=== PATIENT | female | born 1960 | race Caucasian/White ===

== ENCOUNTER 2017-01-03 07:25 | Day surgery (SDC) | payer OTHER ==
[2017-01-01 12:41] LABS: Basophils % (Auto) 0.3 % (0.0-1.8); Eosinophils % (Auto) 1.9 % (0.0-4.3); Hematocrit 38.7 % (30.3-42.9); Hemoglobin 12.6 gm/dl (10.1-14.3); Mean Corpuscular HGB Conc 33 % (30-34); Mean Corpuscular Hemoglobin 26 pg (28-32); Mean Corpuscular Volume 81 fl (79-97); Platelet Count 270 K/mm3 (140-440); Red Blood Count 4.79 M/mm3 (3.65-5.03); Red Cell Distribution Width 14.7 % (13.2-15.2); White Blood Count 7.9 K/mm3 (4.5-11.0)
[2017-01-01 13:11] LABS: Anion Gap 18 mmol/L; Blood Urea Nitrogen 13 mg/dL (7-17); Calcium 9.5 mg/dL (8.4-10.2); Carbon Dioxide 30 mmol/L (22-30); Chloride 95.6 mmol/L (98-107); Glucose 261 mg/dL (65-100); Potassium 4.2 mmol/L (3.6-5.0); Sodium 139 mmol/L (137-145)
--- NOTE | 2017-01-03 08:33 | Short Stay Summary ---
Short Stay Documentation Date of service: 01/03/17 Narrative H&P: 56-year-old 014 with a history of a thickened endometrium on ultrasound. The patient had ultrasound performed that demonstrated evidence of 1.8 cm mass in the myometrium and endometrial thickness of 25 mm. The patient reports being amenorrheic for a year. She complains of having a bulge in her pelvis consistent with findings of a cystocele. An endometrial biopsy was attempted in the office however was unsuccessful secondary to findings of a stenotic cervical os. - History Principal diagnosis: endometrial hyperplasia; cervical stenosis Past Medical History: diabetes, hypertension Past Surgical History: No surgical history Social history: - Allergies and Medications Current Medications: Allergies latex Allergy (Verified 12/28/16 14:50) itches, rash peanut Allergy (Verified 12/28/16 14:50) Anaphylaxis baby carrots Allergy (Uncoded 12/28/16 14:50) itchy throat, SOB green sweet pepper Allergy (Uncoded 12/28/16 14:50) itchy throat, SOB jalopeno Allergy (Uncoded 12/28/16 14:50) itchy throat, SOB Home Medications Medication Instructions Recorded Confirmed Last Taken Type Aspirin [Adult Low Dose Aspirin EC] 81 mg PO DAILY 12/28/16 12/28/16 12/21/16 History Ibuprofen [Motrin] 200 mg PO Q6H PRN 12/28/16 12/28/16 Unknown History Lisinopril/Hydrochlorothiazide 1 tab PO QDAY 12/28/16 12/28/16 Unknown History [Zestoretic 20-25 mg] Vitamin B Complex [Natural B-100] 1 each PO DAILY 12/28/16 12/28/16 Unknown History glipiZIDE [Glucotrol] 10 mg PO BID 12/28/16 12/28/16 Unknown History metFORMIN [Glucophage] 1,000 mg PO BID 12/28/16 12/28/16 Unknown History - Physical exam General appearance: no acute distress Integumentary: no rash HEENT: Atraumatic Lungs: Clear to auscultation Breasts: deferred Heart: Regular rate Gastrointestinal: normal Female Genitourinary: deferred Rectal Exam: deferred - Brief post op/procedure progress note Date of procedure: 01/03/17 Pre-op diagnosis: thickened endometrium Post-op diagnosis: same Procedure: Hysteroscopy; dilatation and curettage Anesthesia: GETA Surgeon: DALY CALDERON Estimated blood loss: minimal Pathology: list (endometrial curettings) Specimen disposition: to lab Condition: stable - Hospital course Hospital course: The patient was admitted the day of surgery and underwent a hysteroscopy dilatation and curettage. Please see operative note for details of surgery. Her postoperative course was uneventful. - Disposition Condition at discharge: Good Disposition: DISCHARGED TO HOME OR SELFCARE Short Stay Discharge Plan Activity: other (pelvic rest for 1 week) Diet: regular Additional Instructions: Patient should follow up with Dr. Calderon in 2 weeks Prescriptions: Ibuprofen [Motrin] 800 mg PO Q8HR PRN #60 tablet PRN Reason: Pain oxyCODONE /ACETAMINOPHEN [Percocet 5/325] 1 tab PO Q6HR PRN #30 tablet PRN Reason: Pain
[2017-01-03] MEDS ORDERED: NACL 0.9% 1000 ML 1,000 ML ONE (09:16)
--- NOTE | 2017-01-03 09:26 | Anesthesia Day of Surgery ---
Anesthesia Day of Surgery - Day of Surgery Patient Examined: Yes Patient H&P Reviewed: Yes Patient is NPO: Yes
--- NOTE | 2017-01-03 09:26 | Anesthesia Consultation ---
Anesthesia Consult and Med Hx Date of service: 01/03/17 - Airway Anesthetic Teeth Evaluation: Good ROM Head & Neck: Adequate Mental/Hyoid Distance: Adequate Mallampati Class: Class II Intubation Access Assessment: Probably Good - Pulmonary Exam CTA: Yes - Cardiac Exam Cardiac Exam: RRR - Pre-Operative Health Status ASA Pre-Surgery Classification: ASA3 Proposed Anesthetic Plan: General - Pulmonary Hx Smoking: No - Cardiovascular System Hx Hypertension: Yes (since 2003) - Central Nervous System Hx Psychiatric Problems: No - Gastrointestinal Hx Gastroesophageal Reflux Disease: No - Endocrine Hx Non-Insulin Dependent Diabetes: No Hx Hypothyroidism: No Hx Hyperthyroidism: No - Hematic Hx Anemia: No Hx Sickle Cell Disease: No - Other Systems Hx Alcohol Use: Yes (occas) Hx Substance Use: No Hx Cancer: No Hx Obesity: Yes
[2017-01-03] MEDS ORDERED: VERSED ONE (09:30)
[2017-01-03] MEDS ORDERED: PEPCID ONE (09:30)
[2017-01-03] MEDS ORDERED: PEPCID PO NR (10:00)
[2017-01-03] MEDS ORDERED: ZOFRAN IV PRN (10:00)
[2017-01-03] MEDS ORDERED: VERSED IV NR (10:00)
[2017-01-03] MEDS ORDERED: NACL 0.9% 1000 ML 1,000 ML IV SCH (10:00)
[2017-01-03] MEDS ORDERED: DIPRIVAN 10 MG/ML IV ONE (10:14)
[2017-01-03] MEDS ORDERED: XYLOCAINE MPF 2% ONE (10:15)
[2017-01-03] MEDS ORDERED: DILAUDID ONE (10:15)
[2017-01-03] MEDS ORDERED: NACL 0.9% IR ONE (10:45)
[2017-01-03] MEDS: DILAUDID IV PRN ×2 (11:25→11:35)
--- NOTE | 2017-01-03 11:32 | Operative Report ---
Operative Report Operative Report: Date of procedure: 01/03/2017 Pre-operative diagnosis: Thickened endometrium; stenotic cervical os Post-operative diagnosis: Same as above Procedure name(s): Hysteroscopy; dilatation and curettage Surgeon: Martha Mace M.D. Straight Cutter: None Anesthesia: LMA Pathology: Endometrial curettings Findings normal post menopausal endometrium; ostia identified bilaterally Indication: 56-year-old 014 with a history of a thickened endometrium found on pelvic ultrasound. The patient has been postmenopausal for 1 year and is amenorrheic. Secondary to her systolic cervical os and endometrial biopsy could not be performed in the office. Procedure The patient was taken to the operating room and given general tracheal anesthesia without complication. The patient was prepped and draped in a normal sterile fashion. A bivalve speculum was placed in the patient's vagina single-tooth tenaculums placed on the anterior lip of the cervix. The cervical os was significantly strictured. The cervical os was dilated with graduated dilators. A uterine sound was inserted. The hysteroscope was then placed. Insufflation of the uterine cavity was performed with normal saline. Gen. survey of the uterine cavity revealed normal postmenopausal endometrium, no intracavitary lesions were identified. The hysteroscope was then removed. A sharp curettage of the endometrial surface was performed. The tissue was sent to pathology. The remainder of the vaginal instruments were then removed atraumatically. The patient was then successfully extubated taken to the recovery room. All sponge laps and needle counts were correct 2.
[2017-01-03] MEDS ORDERED: PERCOCET 5/325 PO PRN (12:00)
--- NOTE | 2017-01-03 16:07 | Post Anesthesia Evaluation ---
- Post Anesthesia Evaluation Patient Participated: Yes Airway Patent: Yes Stable Respiratory Function: Yes Nausea/Vomiting: No Temp > 96.8F: Yes Pain Manageable: Yes Adequeate Hydration: Yes Anesthesia Complications: No Block Receding Appropriately: Not Applicable Patient on Ventilator: No
[2017-01-03 18:22] VITALS: BP 134/78
== END 2017-01-03 13:40 | disposition home or self-care (01) ==
LOC: OR 07:25
PROVIDERS: ATTEND Obstetrics & Gynecology
DX: N88.2 Stricture and stenosis of cervix uteri (principal); I10 Essential (primary) hypertension; E11.9 Type 2 diabetes mellitus without complications; E66.9 Obesity, unspecified; Z68.34 Body mass index [BMI] 34.0-34.9, adult; Z79.899 Other long term (current) drug therapy
CPT/HCPCS: 36415; 58558; 80048; 81025; 82962; 84703; 85025; 86850; 86900; 86901; 88305; A4217; J1170; J2250; J2704; J7030

== ENCOUNTER 2017-12-18 19:27 | Emergency (ER) | payer OTHER ==
[2017-12-18 20:39] VITALS: BP 143/78
--- NOTE | 2017-12-18 22:47 | Emergency Department Report ---
HPI - General Chief Complaint: Allergic Reaction Time Seen by Provider: 12/18/17 22:42 - HPI HPI: Patient is a 57-year-old female who presents ED complaining of allergic reaction to some carrots. Patient states that she ate some carrot 6:30 PM today. Patient states she normally has allergies to carrots. Patient states shortly after eating carrots she had some throat itching. Patient states symptoms therapy resolve when the she is still having some slightest throat itching so she wanted to be evaluated. She denies fever/chills/rash/nausea vomiting or abdominal pain, Swelling or shortness of breath ED Past Medical Hx - Past Medical History Hx Hypertension: Yes (since 2003) Hx Diabetes: Yes (since 2001) Hx Sickle Cell Disease: No Hx HIV: No - Surgical History Past Surgical History?: No - Social History Smoking Status: Never Smoker Substance Use Type: Alcohol - Medications Home Medications: Home Medications Medication Instructions Recorded Confirmed Last Taken Type Aspirin [Adult Low Dose Aspirin EC] 81 mg PO DAILY 12/28/16 12/28/16 12/21/16 History Ibuprofen [Motrin] 200 mg PO Q6H PRN 12/28/16 12/28/16 Unknown History Lisinopril/Hydrochlorothiazide 1 tab PO QDAY 12/28/16 01/03/17 01/03/17 History [Zestoretic 20-25 mg] Vitamin B Complex [Natural B-100] 1 each PO DAILY 12/28/16 01/03/17 01/02/17 History glipiZIDE [Glucotrol] 10 mg PO BID 12/28/16 01/03/17 01/02/17 History metFORMIN [Glucophage] 1,000 mg PO BID 12/28/16 01/03/17 01/02/17 History Ibuprofen [Motrin] 800 mg PO Q8HR PRN #60 tablet 01/03/17 Unknown Rx oxyCODONE /ACETAMINOPHEN [Percocet 1 tab PO Q6HR PRN #30 tablet 01/03/17 Unknown Rx 5/325] diphenhydrAMINE [Benadryl CAP] 25 mg PO QHS PRN #20 capsule 12/18/17 Unknown Rx ED Review of Systems ROS: Stated complaint: MAXIMINO Other details as noted in HPI Constitutional: denies: chills, fever Eyes: denies: eye pain, eye discharge, vision change ENT: denies: ear pain, throat pain Respiratory: denies: cough, shortness of breath, wheezing Cardiovascular: denies: chest pain, palpitations Endocrine: no symptoms reported Gastrointestinal: denies: abdominal pain, nausea, vomiting, diarrhea, constipation Genitourinary: denies: urgency, dysuria, discharge Musculoskeletal: denies: back pain, joint swelling, arthralgia, myalgia Skin: denies: rash, lesions, pruritus Neurological: denies: headache, weakness, paresthesias Psychiatric: denies: anxiety, depression Hematological/Lymphatic: denies: easy bleeding, easy bruising Physical Exam - Physical Exam Vital Signs: Vital Signs 12/18/17 12/18/17 20:30 20:39 Temperature 98.2 F 98.2 F Pulse Rate 89 88 Respiratory 18 18 Rate Blood Pressure 143/78 143/78 O2 Sat by Pulse 100 100 Oximetry Physical Exam: GENERAL: Alert and oriented x3, no apparent distress, Normal Gait, atraumatic. HEAD: Head is normocephalic and a-traumatic. EYES: Extra ocular muscles are intact. Pupils are equal, round, and reactive to light and accommodation. NOSE: Nose symetrical, Nontender,Nares appeared normal. MOUTH:Mouth is well hydrated and without lesions. Tonsils nonerythematous or swollen, Uvula midline, Tongue not elevated. Mucous membranes are moist. Posterior pharynx clear, no exudate or lesions. Patent airways. NECK: Supple. Non edematous, No lymphadenopathy or thyromegaly. No C-spine tenderness LUNGS: Symetrical with respiration, No wheezing, no rales or crackles, CTAB. HEART: S1, S2 present, regular rate and rhythm without murmur, no rubs, no gallops. Non tender to palpation ABDOMEN: No organomegaly was noted,Positive bowel sounds, soft, and non- distended. . Nontender to palpation on all Quadrants, NO CVA tenderness. SKIN: Warm and dry, No lesions, No ulceration or induration present. ED Course Vital Signs 12/18/17 12/18/17 20:30 20:39 Temperature 98.2 F 98.2 F Pulse Rate 89 88 Respiratory 18 18 Rate Blood Pressure 143/78 143/78 O2 Sat by Pulse 100 100 Oximetry ED Medical Decision Making - Medical Decision Making This is a 57-year-old female presents with allergic reaction ED course: Patient received dexamethasone and Pepcid in the ED She states she took some Claritin. Discussed with patient to follow up with primary care physician. Discussed the patient to return to ED if any worsening symptoms Vital signs are normal patient is in no acute or respiratory distress She is speaking in normal full sentences Critical care attestation.: If time is entered above; I have spent that time in minutes in the direct care of this critically ill patient, excluding procedure time. ED Disposition Clinical Impression: Allergic reaction to food Qualifiers: Encounter type: initial encounter Qualified Code(s): T78.1XXA - Other adverse food reactions, not elsewhere classified, initial encounter Disposition: - TO HOME OR SELFCARE Is pt being admited?: No Does the pt Need Aspirin: No Condition: Stable Instructions: Food Allergy (ED), Anaphylaxis (ED) Additional Instructions: Make sure to follow up with the primary care physician as discussed. Take all your medications as you've been prescribed. If you have any worsening symptoms or develop new symptoms please return to ED immediately. Prescriptions: diphenhydrAMINE [Benadryl CAP] 25 mg PO QHS PRN #20 capsule PRN Reason: Allergic Reaction Referrals: PRIMARY CARE, [Primary Care Provider] - 3-5 Days [facility] [Outside] - 3-5 Days [facility] [Outside] - 3-5 Days Forms: Work/School Release Form(ED) Time of Disposition: 23:40
[2017-12-18] MEDS ORDERED: DECADRON IM ONE (23:13)
[2017-12-18] MEDS ORDERED: PEPCID PO ONE (23:13)
== END 2017-12-19 00:15 | disposition home or self-care (01) ==
LOC: ED 19:27
DX: T78.1XXA Other adverse food reactions, not elsewhere classified, initial encounter (principal); I10 Essential (primary) hypertension; E11.9 Type 2 diabetes mellitus without complications; Z79.82 Long term (current) use of aspirin; X58.XXXA Exposure to other specified factors, initial encounter; Z91.018 Allergy to other foods
CPT/HCPCS: 96372; 99282; J1100